=== PATIENT | male | born 1945 | race Caucasian/White ===

== ENCOUNTER 2022-08-18 08:19 | Outpatient (CLI) | payer OTHER, SELFPAY ==
--- NOTE | ~2022-08-18 | MR_ITS ---
EXAMINATION: MR knee RT wo con DATE: 08/18/2022 09:24 INDICATION: Right knee pain TECHNIQUE: Magnetic resonance imaging (MRI) of the right knee was performed without intravenous contr ast. Sequences included coronal PD-weighted FSE, coronal PD-weighted FS FSE, sagittal T2-weighted FS E, sagittal PD-weighted FS FSE and axial PD weighted fat saturated FSE. COMPARISON: Right knee CT dated 05/06/2022 FINDINGS: Medial compartment: Complex medial meniscal tear which includes a longitudinal horizontal tear plane of the body and post erior horn with a of the couple additional vertical tear planes in the posterior horn. There is exten sive deep chondral ulceration and fissuring with underlying subarticular edema at both the medial tib ial plateau and weightbearing medial femoral condyle. There is also a focal decreased signal to the s ubcortical bone along portions of the tibial plateau and anterior to central weightbearing medial fem oral condyle which suggests sclerotic eburnation which is not appreciated on the earlier CT suggestin g interval progression. Lateral compartment: Lateral meniscus is normal. Articular cartilage is normal. Patellofemoral compartment: Small region of deep chondral ulceration with minimal underlying subarticular edema-like signal tomlinson e at the superomedial aspect of the lateral patellar facet. There is more extensive partial thickness chondral fissuring without degenerative subchondral changes at the central aspect of the lateral fac et. Additional region of deep chondral ulceration without degenerative subchondral changes at the marcus tral aspect of the medial facet. Mild partial-thickness chondral ulceration at the lateral trochlea a nd with deeper fissuring at the inferior aspect of the trochlear groove and medial trochlea. Ligaments and tendons: Anterior and posterior cruciate ligaments are normal. The fibular collateral ligament is normal. Ther e is moderate tendinopathy of the proximal patellar tendon with likely degenerative cystic changes at its femoral insertion. There is mild thickening and mild increased signal without significant surrou nding edema at the proximal medial collateral ligament consistent with mild scarring related to chron ic sprain. Patellar tendon is normal. Mild distal quadriceps tendinopathy without tear. The visualize d medial and lateral hamstring tendons as well as the iliotibial band are normal. Fluid: Moderate-sized right knee joint effusion. Moderate to large Teresa's cyst measuring 7.6 x 3.4 x 2.3 cm . No loose osteochondral bodies identified. Osseous/other: Bone alignment is normal. Small low signal intensity bone island underlying the trochlear groove.. No fracture or pathologic marrow replacing process. IMPRESSION: 1. Complex medial meniscal tear with severe osteoarthritis and extensive moderate and high-grade dea dromalacia in the medial compartment which appears to progressed since prior CT. 2. Mild patellofemoral osteoarthritis with additional more focal regions of moderate and high-grade c hondromalacia. 3. Moderate proximal popliteal tendinopathy with associated degenerative cystic change at its femoral insertion. 4. Mild scarring likely related to chronic sprain of the proximal medial collateral ligament. 5. Likely reactive moderate sized right knee joint effusion and moderate to large Teresa's cyst. Reviewed, dictated and finalized at location A. IMPRESSION: 1. Complex medial meniscal tear with severe osteoarthritis and extensive modera te and high-grade chondromalacia in the medial compartment which appears to pro gressed since prior CT. 2. Mild patellofemoral osteoarthritis with additional more focal regions of mod erate and high-grade chondromalacia. 3. Moderate proximal popliteal tendinopathy with associated dege
== END 2022-08-18 08:20 | disposition home or self-care (01) ==
PROVIDERS: PCP Family Medicine; Visit Provider Orthopaedic Surgery
DX: S83.231A Complex tear of medial meniscus, current injury, right knee, initial encounter (principal); X58.XXXA Exposure to other specified factors, initial encounter; M17.11 Unilateral primary osteoarthritis, right knee
CPT/HCPCS: 73721

== ENCOUNTER 2022-09-15 07:41 | Outpatient (CLI) | payer OTHER, SELFPAY ==
--- NOTE | 2022-09-15 08:41 | ECG_ITS ---
Measurements Intervals [place] Rate: 70 P: -1 MD: 142 QRS: 0 QRSD: 137 T: 3 QT: 422 QTc: 457 Interpretive Statements SINUS RHYTHM RIGHT BUNDLE BRANCH BLOCK ABNORMAL ECG NO PREVIOUS ECG AVAILABLE FOR COMPARISON Electronically Signed On 09-15-2022 9:21:24 CDT by Chau Cummings D.O.
[2022-09-15 09:04] LABS: Basophils Percent Auto 0.7 % (0.2-1.2); Eosinophils Absolute Auto 0.1 K/mm3 (0-0.3); Eosinophils Percent Auto 1.8 % (0-4.4); Hematocrit 44.5 % (42.0-52.0); Hemoglobin 14.6 g/dL (14.0-18.0); Immature Granulocyte Absolute 0.02 K/mm3 (0.00-0.031); Immature Granulocyte Percent A 0.4 % (0-0.5); Lymphocytes Absolute Auto 1.66 K/mm3 (0.9-3.2); Lymphocytes Percent Auto 29.5 % (18.3-44.2); Mean Corpuscular HGB Conc 32.8 g/dl (32-36); Mean Corpuscular Volume 91.6 fl (80-100); Mean Platelet Volume 9.5 fl (7.4-10.4); Monocytes Absolute Auto 0.4 K/mm3 (0.1-0.6); Monocytes Percent Auto 6.8 % (2.6-8.5); Neutrophils Absolute Auto 3.4 K/mm3 (1.3-6.7); Neutrophils Percent Auto 60.8 % (45.5-73.1); Platelet Count Result 185 k/mm3 (150-375); Red Blood Count 4.86 M/mm3 (4.6-6.20); Red Cell Distribution Width 12.6 % (11.5-14.5); White Blood Count 5.6 K/mm3 (4.5-10.0)
[2022-09-15 09:15] LABS: Albumin Level 4.2 g/dL (3.5-5.1); Estimated Glomerular Filt Rate > 60; Glucose 106 mg/dL (65-110)
[2022-09-15 09:23] LABS: Urine Cotinine NEGATIVE
[2022-09-15 09:48] LABS: Hemoglobin A1C 5.5 % (<5.7)
== END 2022-09-15 07:42 | disposition home or self-care (01) ==
LOC: ANHSURGERY 07:46
PROVIDERS: PCP Family Medicine; Visit Provider Orthopaedic Surgery
DX: M17.11 Unilateral primary osteoarthritis, right knee (principal); Z01.818 Encounter for other preprocedural examination; I45.10 Unspecified right bundle-branch block
CPT/HCPCS: 80307; 82040; 82565; 82947; 83036; 85025; 87081; 93005

== ENCOUNTER 2022-10-05 03:01 | Day surgery (SDC) | payer OTHER, SELFPAY ==
[2022-09-15 07:47] VITALS: BP 154/84; PULSE 76; RESP 16; TEMP 36.8; O2SAT 97
[2022-09-15 07:54] VITALS: BMI 30.7
--- NOTE | 2022-09-15 08:04 | PC.NURSE ---
Report to the Outpatient Waiting Room, entrance under the green pavilion located off [facility], at time __7:30AM on date __10/05/22 . Planned Procedure Time: __9:30AM . Time changes happen often and if your time is changed the preop area will call you the afternoon before. - You and your visitor will be asked to self-screen and do not enter if you have any COVID symptoms. - A mask is optional within the hospital at this time. Patients may have clear liquids (water, carbonated beverages, clear teas, apple juice) until 3 hours prior to surgery with a maximum of 20 ounces. - No food from midnight until time of surgery Take the following medications with a SIP of water the morning of surgery: __NONE DO NOT STOP ANY OF YOUR OTHER PRESCRIPTION MEDICATIONS PRIOR TO SURGERY ?EXCEPT THE FOLLOWING Medications to discontinue per physician NONE Date to take last dose Please no make-up, nail japanese, hairspray, perfume, deodorant, or body powder the day of surgery. No jewelry (including any body piercings) or valuables the day of surgery, leave them at home. Please take a shower or bath the night before, or the morning of, surgery with an antibacterial soap. Wear comfortable, loose fitting clothing. Children are encouraged to wear pajamas. - Jewelry must be removed prior to entering the operating room. Rings and piercings that are not removed may be cut off. - The hospital will not accept responsibility for valuables. - Please leave all valuables, including medications, at home the day of surgery. If you are going home after surgery, a licensed regional company hazmat tanker driver must drive you home. - NO public transportation without another adult if you receive anesthesia. - We recommend that an adult stay with you for 24 hours following discharge. - We also recommend that you do not drive, make important decision, drink alcoholic beverages, or take any drugs that were not prescribed by your health care provider for at least 24 hours after your discharge time. For Pediatric surgeries, we recommend two adults accompany the child home. Follow any additional instructions given to you from your surgeon. If you or anyone in your household have experienced Covid symptoms in the past week, please notify your surgeon or the nurse liaison at the phone number below for possible testing. Telephone instructions given to __PATIENT and asked if any additional questions and then verbalized understanding. Patient advised to call surgeon office or pre surgery nurse liaison [phone] if any additional questions.
[2022-10-05] VITALS (12 sets, daily range): BP systolic 117–156; BP diastolic 60–85; PULSE 76–101; RESP 12–19; TEMP 36.1–36.9; O2SAT 92–100
--- NOTE | ~2022-10-05 | XR_ITS ---
EXAMINATION: [id number] DATE: 10/05/2022 10:01 INDICATION: Right knee arthroplasty. Postop. TECHNIQUE: 2 views of right knee were obtained. COMPARISON: Right knee radiographs 09/23/2022 FINDINGS: There is a medial compartment arthroplasty in near-anatomic alignment. There is mild osteoa rthritis of lateral and patellofemoral compartments characterized by tiny osteophytes. There is gas i n the soft tissues, consistent recent surgery. IMPRESSION: 1. Medial compartment arthroplasty in near-anatomic alignment. Reviewed, dictated and finalized at location A.
[2022-10-05] MEDS: TRANEXAMIC ACID 1,000MG/ISO100 1,000 MG/100 ML BAG 200 MG IVPB (07:00)
[2022-10-05] MEDS: ACETAMINOPHEN 500 MG TABLET 1000 MG PO (07:00)
[2022-10-05] MEDS: LACTATED RINGERS 1,000 ML 30 ML IV CONT ×2 (07:00→09:41)
--- NOTE | 2022-10-05 07:03 | P.PNAN_ITS ---
Anes - Initial Pre Proc Eval Procedure: Operation Date: 10/05/22 07:30 Proposed Procedures p Right Unicompartmental Knee Arthroplasty - Zaki Hung MD Date/Time: 10/05/22 07:03 Surgeon: Zaki Hung MD Pre Op Diagnosis: oa right knee Patient Data Age: 76 Gender: M Height: 1.8 m Weight: 99.7 kg Last Vital Signs Temp 36.8 C 09/15/22 07:47 Pulse 76 09/15/22 07:47 Resp 16 09/15/22 07:47 BP 154/84 H 09/15/22 07:47 Pulse Ox 97 09/15/22 07:47 O2 Del Method Room Air 09/15/22 07:47 Allergies Allergy/AdvReac Type Severity Reaction Status Date / Time No Known Allergies Allergy Verified 09/23/22 10:30 Home Medications Medication Instructions Recorded Confirmed Type losartan 25 mg tablet 25 mg PO QAM 07/01/22 09/23/22 History meloxicam 15 mg tablet 15 mg PO QAM 07/01/22 09/23/22 History simvastatin 40 mg tablet 40 mg PO HS 07/01/22 09/23/22 History rivaroxaban 10 mg tablet (Xarelto) 10 mg PO DAILY 14 days #14 tabs 09/23/22 09/23/22 Rx Patient hx anesthesia problems: none Family hx anesthesia problems: none Results Review: All pre-operative results and documents have been reviewed as part of the pre- operative evaluation. [facility] Past Medical History Medical History Arthritis of right knee Hypertension Surgical History Surgical History History of hernia repair History of knee replacement procedure of left knee 1999- Dr Lawson Social History Social History Smoking status: Never smoker Second hand tobacco smoke exposure: No Alcohol intake: current Substance use: never Substance use type: does not use Lack of Transportation: No Lack of Food: Never True Current Housing: I Have Housing Concerned About Future Housing: No Difficulty Paying Gas/Electric Bills: No Difficulty Paying for Meds: No Currently Unemployed: No Education: High School Diploma/GED Difficulty w/ Childcare or Family Care: No Living arrangements: with family Additional living arrangements comments: Occupation/Education: retired Spiritual care concerns: No Anes - Eval Final PreProcedure Day of Procedure 10/05/22 07:03 Patient weight: overweight Heart: regular rate and rhythm Lungs: clear to auscultation Airway: Mallampati scale class II Neurological: alert and oriented Last oral intake: >/= 8 hours ASA classification: III Emergent: no Anesthetic plan: proceed Anesthesia type and monitoring: general LMA and standard monitoring Results Review: All pre-operative results and documents have been reviewed as part of the pre- operative evaluation. Informed Consent: The patient's anesthetic plan and its attendant risks and benefits were discussed with the patient/family/POA. Questions were solicited and answers provided to the satisfaction of the patient/family/POA.
--- NOTE | 2022-10-05 07:18 | WPDHPUPDATE1 ---
History and Physical Update Update Date/Time: 10/05/22 07:18 History and Physical has been reviewed, including an updated exam of the patient. There are NO changes in the patient's condition. Risks, benefits, and alternatives have been discussed and questions answered. Patient agrees to proceed with procedure.
[2022-10-05] MEDS: ceFAZolin 2 GM/D5W 50 ML 2 GM/50 ML BAG IVPB ×2 (07:29→16:09)
--- NOTE | 2022-10-05 07:31 | WPDANESPNB ---
Anes - Peripheral Nerve Block Date/Time: 10/05/22 07:31 I have discussed with the patient/family/POA the placement of a peripheral nerve block for post-operative pain management, including associated risks, benefits, complications, and side effects. Alternative methods of post-operative analgesia were detailed. Questions were solicited and answers provided to the satisfaction of the patient/family/POA. Time-Out: A pre-procedural Time-Out was completed immediately before starting the procedure and confirmed: Patient Identification, Site, Procedure, Patient Position and the Availability of Requisite Equipment. Clinical Indications: Acute post-operative pain management requested by the operative surgeon. Nerve Block Insertion Note Anes-nerve block: adductor canal right Patient position: supine Skin prep: chlorhexidine Needle: 22 gauge, stimulating, insulated echogenic needle. Needle length: 80 mm Technique: ultrasound Injectate: bupivacaine 0.5% with epi 5 mcg/ml (30ml) Observations: tolerated well Complications: none Procedure start time:: 720 Procedure end time:: 727
[2022-10-05] MEDS: ceFAZolin SODIUM 1 GM VIAL IV PUSH (08:52)
--- NOTE | 2022-10-05 09:50 | P.OP_ITS ---
Procedure Note - Detailed Date of Procedure 10/05/22 Pre-op Diagnosis oa right knee Post-op Diagnosis Same Procedure Performed Right knee medial compartment replacement Surgeon Zaki Hung MD Supervisor [facility] Anesthesia General and Regional Description of Procedure The patient was identified and the proper site identified. In the preop holding area the anesthesia team performed a right lower extremity block. He was then taken to the operating room and transferred to the OR table placing him supine taking care to pad his torso and extremities. After general anesthetic induction and intubation. a nonsterile tourniquet was placed high on the right thigh. The extremity was positioned, prepped, and draped in the usual sterile fashion. The extremity was exsanguinated and the tourniquet was inflated to 300 mmHg remaining up for approximately 55 minutes. An anterior midline incision was made and sharp dissection carried down through the subcutaneous tissue to the extensor mechanism. A modified medial parapatellar arthrotomy was performed. The articular and meniscal cartilage of the lateral compartment was inspected and noted to be in excellent shape. Anterior and posterior cruciate ligaments were in continuity. There were extensive degenerative changes medial compartment and milder patellofemoral changes. The marginal osteophytes were removed from the notch and the medial aspect of the medial femoral condyle, and the remaining meniscal tissue was removed. The femur was sized to a large. With the appropriate spoon and tibial guide, a tibial resection was made. This was sized to C. Using the mill, the flexion and extension gaps were balanced. A trial reduction was undertaken. The range of motion of the knee was noted to be from full extension to 0-120? of flexion with excellent stability through range of motion. The polyethylene insert tracked nicely. The trial components were removed. The real large femur and size C tray for the right knee were cemented into place. The knee was held in about 30? of flexion while the cement cured. The tourniquet was released and excess cement was removed from the joint. Hemostasis was carried out. The knee was flushed with a copious amount of irrigation. After trialing, the appropri ate real size 3 insert for the femoral component was inserted and the stability again assessed. The knee was noted to be stable as it was taken through range of motion. The periarticular tissues were injected with 60 mL of arthroplasty solution after a 3 minutes Betadine bath wound. Surgicel powder was applied deep to and superficial to the extensor mechanism. The extensor mechanism was repaired with 0 looped PDS suture, the subcu with 3-0 Monocryl, 2-0 Stratafix and tissue adhesive for the skin. A sterile dressing was applied. The patient tolerated the procedure well, was awakened, extubated, and taken to recovery room in stable condition. Estimated Blood Loss 100 Tourniquet Time 55 Drains No Packing No Pathology None sent Complications No immediate complications Condition Stable Disposition PACU [facility] Billing Surgery - Charge Forward: Surgery Billing ([id number])
[2022-10-05] MEDS: fentaNYL CITRATE INJ (*CRX) 100 MCG/2 ML VIAL 25 MCG IV PUSH ×4 (09:56→10:30)
[2022-10-05] MEDS: oxyCODONE/ACETAMINOPHEN (*CRX) 5-325 MG TABLET 1 TABLET PO ×3 (12:51→21:28)
[2022-10-05] MEDS: SENNA/DOCUSATE SODIUM TABLET 2 TAB PO (17:58)
--- NOTE | 2022-10-05 19:39 | WPDCN ---
Assessment and Plan Assessment and plan (1) Arthritis of right knee: Code(s): M17.11 - Unilateral primary osteoarthritis, right knee Status: Chronic Assessment and Plan: Postoperative day 0 status post right total knee replacement. Wound care, pain control, and DVT prophylaxis deferred to Dr. Hung. Agree with PT/OT. Check hemoglobin hematocrit in a.m. (2) Hypertension: Code(s): I10 - Essential (primary) hypertension Status: Acute Assessment and Plan: Blood pressures were reviewed and they have been stable postoperatively. Resume losartan 25 mg and monitor closely. (3) Hyperlipidemia: Code(s): E78.5 - Hyperlipidemia, unspecified Status: Acute Assessment and Plan: Continue simvastatin 40 mg at bedtime. Check LFTs in a.m.. Plan Thank you for allowing us to participate in this patient's care. Please do not hesitate to contact us with any questions. HPI Data of Consult Date/Time: 10/05/22 22:00 Requesting Physician: Zaki Hung MD Consult Narrative Reason for consult: Postoperative medical management. Narrative: This is a 76 year male with osteoarthritis, hypertension, and hyperlipidemia whom the hospitalist service has been consulted for help managing his medical conditions postoperatively. He reports longstanding pain in his right knee which has not been amenable to conservative outpatient therapy and he elected for replacement. His surgery was performed under general and regional anesthesia with no immediate complications documented an estimated blood loss of 100 mL. Postoperatively he has done well and his pain is well controlled. He has been up to the chair and ambulating to the bathroom with a walker without issue. He denies postoperative fever, chills, sweats, chest pain, shortness a breath, nausea, and vomiting. He also denies paresthesias, skin color, and temperature changes distal to the surgical site. He is quite a healthy gentleman. He is on losartan 25 mg and simvastatin 40 mg daily for his hypertension hyperlipidemia and to his knowledge both are well controlled. He also has meloxicam which he takes for his arthritic pain. He denies history of venous thromboembolism. Review of Systems Review of Systems: Twelve systems were reviewed and are negative except for as per HPI. [facility] Past Medical History Medical History (Updated 10/05/22 @ 19:43 by Sarah Torres PA-C) Arthritis of right knee Hyperlipidemia Hypertension Surgical History Surgical History (Updated 10/05/22 @ 19:43 by Sarah Torres PA-C) History of cataract extraction with lens replacement History of hernia repair History of right inguinal hernia repair History of total left knee replacement (1999) Per Dr. Lawson. History of total right knee replacement (10/05/22) Per Dr. Hung. History of umbilical hernia repair History of vasectomy Family History Family History (Updated 10/05/22 @ 19:43 by Sarah Torres PA-C) Other Family history non-contributory Social History Social History (Updated 10/05/22 @ 19:44 by Sarah Torres PA-C) Social History: Surrogate medical decision maker: Eun Montoya, spouse. Code status: Full code. Smoking status: Never smoker Second hand tobacco smoke exposure: No Alcohol intake: current Alcohol use details: Social alcohol use in moderation. Substance use: never Substance use type: does not use Lack of Transportation: No Lack of Food: Never True Current Housing: I Have Housing Concerned About Future Housing: No Difficulty Paying Gas/Electric Bills: No Difficulty Paying for Meds: No Currently Unemployed: No Education: High School Diploma/GED Difficulty w/ Childcare or Family Care: No Living arrangements: with family Additional living arrangements comments: Lives with spouse in [place]. Occupation/Education: retired Spiritual care concerns: No Meds Home M
[2022-10-05] MEDS: SIMVASTATIN 20 MG TABLET 40 MG PO (21:28)
[2022-10-06] MEDS: ceFAZolin 2 GM/D5W 50 ML 2 GM/50 ML BAG IVPB ×2 (00:19→05:51)
[2022-10-06] MEDS: oxyCODONE/ACETAMINOPHEN (*CRX) 5-325 MG TABLET 1 TABLET PO ×3 (00:20→09:04)
[2022-10-06 00:29] VITALS: BP 132/74; PULSE 83; RESP 18; TEMP 36.6; O2SAT 97
[2022-10-06 04:23] VITALS: BP 121/57; PULSE 72; RESP 17; TEMP 36.8; O2SAT 94
[2022-10-06 05:18] LABS: Hematocrit 38.9 % (42.0-52.0); Hemoglobin 12.8 g/dL (14.0-18.0); Mean Corpuscular HGB Conc 32.9 g/dl (32-36); Mean Corpuscular Volume 91.1 fl (80-100); Mean Platelet Volume 9.8 fl (7.4-10.4); Platelet Count Result 172 k/mm3 (150-375); Red Blood Count 4.27 M/mm3 (4.6-6.20); Red Cell Distribution Width 12.4 % (11.5-14.5); White Blood Count 10.4 K/mm3 (4.5-10.0)
[2022-10-06 05:29] LABS: Alanine Aminotransferase 15 U/L (6-50); Albumin Level 3.6 g/dL (3.5-5.1); Alkaline Phosphatase 42 U/L (38-126); Anion Gap 5 mmol/L (8-16); Aspartate Amino Transferase 21 U/L (17-59); Bilirubin,Total 0.5 mg/dL (0.2-1.3); Blood Urea Nitrogen 17 mg/dL (9-20); Calcium 8.6 mg/dL (8.4-10.2); Carbon Dioxide 24 mmol/L (22-30); Chloride 105 mmol/L (98-107); Estimated CRCL calculation 82 ml/min; Estimated Glomerular Filt Rate > 60; Glucose 141 mg/dL (65-110); Magnesium 2.2 mg/dL (1.6-2.3); Potassium 4.1 mmol/L (3.4-5.0); Sodium 134 mmol/L (137-145)
--- NOTE | 2022-10-06 07:42 | PM.DS ---
DS: Admitting Diagnosis Discharge Date 10/06/2022 Admitting Diagnosis Primary osteoarthritis right knee DS: Discharge Diagnosis Discharge Diagnosis (1) Status post right unicompartmental knee replacement: Code(s): Z96.651 - Presence of right artificial knee joint Status: Acute Plan 76-year-old male postop day 1 after right unicompartmental knee arthroplasty with Dr. Hung. Overall doing very well and was able to participate with therapy yesterday. Incision site is clean and dry. He will remain 50% weight-bearing for a total of 6 weeks following the procedure. Postoperative wound care and medications were reviewed with him in detail. He will take Xarelto for 2 weeks and then start on 325 mg aspirin for another 4 weeks for a total of 6 weeks of DVT prophylaxis. He will hold the meloxicam until further notice. He has follow-up scheduled in 2 weeks for wound check. DS: Summary Hospital Course Reason for hospitalization: Observation after outpatient procedure Hospital Course: 76-year-old male admitted for observation after right unicompartmental knee arthroplasty. Uneventful overnight stay. Incision site is clean and dry. Hospitalist service was consulted due to hypertension and hyperlipidemia. Plan on receiving therapy again today prior to discharge later this afternoon Status at Discharge Functional status at discharge: uses cane/walker Overall status at discharge: patient is progressing back to baseline Time Spent with Patient Time attestation: Total time spent providing and/or coordinating discharge services: Time spent: Less than 30 minutes Exam Const: General: cooperative, comfortable and no acute distress; No confusion Orientation/consciousness: No confusion HENMT: Head: normal to inspection Ears: hearing grossly normal bilaterally Mouth: Yes moist mucous membranes Eyes: General: appearance normal, both eyes and all related structures Resp: Effort & Inspection: normal respiratory effort and able to speak in complete sentences GI: Inspection: normal to inspection and non-distended Skin: General skin exam: normal color, no ecchymosis and no erythema Neuro: General: No confusion Cranial nerves: Yes Normal hearing present Speech: normal speech Sensory Exam: normal sensation Extrem: Other: Exam of the right lower extremity shows a clean and dry surgical dressing. Mild effusion of the right knee with slight right lower extremity edema, consistent with right knee unicompartmental arthroplasty. He is able to wiggle his toes without difficulty, pulses are strong. Calves negative. Neurovascular status right lower extremity is intact. Psych: Mental Status: mental status grossly normal DS: Data Data Completed and Pending Labs on day of discharge: Labs from last 24 hours 10/06/22 10/05/22 04:45 06:51 WBC 10.4 H RBC 4.27 L Hgb 12.8 L Hct 38.9 L MCV 91.1 MCH 30.0 MCHC 32.9 RDW 12.4 Plt Count 172 MPV 9.8 Sodium 134 L Potassium 4.1 Chloride 105 Carbon Dioxide 24 Anion Gap 5 L BUN 17 Creatinine 0.70 Estim Creat Clear Calc 82 Estimated GFR > 60 Glucose 141 H Calcium 8.6 Magnesium 2.2 Total Bilirubin 0.5 AST 21 ALT 15 Alkaline Phosphatase 42 Total Protein 6.0 L Albumin 3.6 Antibody Screen Negative Discharge Plan Discharge Patient Disposition: Home, Self-Care Discharge Instructions: 3 times daily for 20 minutes each time, reclining in bed with ice packs over the incision and a pillow underneath the calf of the affected leg, not under the knee. Your wound is glued so it is okay to remove the dressing, get into the shower and get the wound wet in two days. Be sure to read through all the information that came from a my office and the hospital. Most of the answers you will need can be found that material. You will be using your walker for a total of six weeks putting 50% weight on your right leg. Call the offic
[2022-10-06] MEDS: polyethylene glycoL 3350 17 GM POWD.PACK PO (09:04)
[2022-10-06] MEDS: RIVAROXABAN 10 MG TABLET PO (09:04)
[2022-10-06] MEDS: SENNA/DOCUSATE SODIUM TABLET 2 TAB PO (09:04)
[2022-10-06] MEDS: LOSARTAN POTASSIUM 25 MG TABLET PO (09:04)
--- NOTE | 2022-10-06 10:01 | PM.IMPN ---
Progress Note: A&P Assessment and Plan (1) Arthritis of right knee: Code(s): M17.11 - Unilateral primary osteoarthritis, right knee Status: Resolved Assessment and Plan: Postoperative day 1 status post right total knee replacement 10/05 Wound care, pain control, and DVT prophylaxis deferred to Dr. Hung. Agree with PT/OT. Monitor hgb (2) Hypertension: Code(s): I10 - Essential (primary) hypertension Status: Acute Assessment and Plan: Blood pressures were reviewed 10/06 Cont losartan 25 mg and monitor closely. (3) Hyperlipidemia: Code(s): E78.5 - Hyperlipidemia, unspecified Status: Acute Assessment and Plan: Continue simvastatin 40 mg at bedtime LFTs wnl Plan DVT prophylaxis with SCDs GI prophylaxis not indicated Code status full code Subjective Date/time seen: 10/06/22 10:01 Interval history: No overnight events noted. No chest pain or shortness of breath. No nausea, vomiting or diarrhea. No fevers or chills. Review of Systems Review of Systems: 12 point review of systems was assessed and was negative except as noted in the HPI Exam Narrative: General: No acute distress, alert and oriented per baseline HEENT: Atraumatic, normocephalic, mucous membranes moist CV: Regular rate and rhythm, S1, S2 Lungs: Clear to auscultation bilaterally, no rales or crackles noted, no wheezes, good air entry Abdomen: Soft, nontender, nondistended Extremities: Normal to inspection Skin: No rashes noted, no lesions or wounds seen Psych: Euthymic, normal affect Objective Data Vital Signs Vital Signs: Vital Signs - 24 hr 10/05/22 10:04 10/05/22 10:10 10/05/22 10:25 Temperature Pulse Rate 87 83 Respiratory Rate 16 16 Blood Pressure 140/76 148/67 H Pulse Oximetry 92 95 Oxygen Delivery Room Air Room Air Room Air 10/05/22 10:40 10/05/22 11:00 10/05/22 11:15 Temperature 97.6 F 97.6 F Pulse Rate 87 81 82 Respiratory Rate 18 18 18 Blood Pressure 117/80 135/69 140/74 Pulse Oximetry 95 95 96 Oxygen Delivery Room Air 10/05/22 11:45 10/05/22 13:07 10/05/22 12:45 Temperature 97.6 F 98.1 F Pulse Rate 76 87 Respiratory Rate 18 18 Blood Pressure 132/71 153/60 H Pulse Oximetry 98 97 Oxygen Delivery Room Air 10/05/22 16:59 10/05/22 20:29 10/05/22 20:00 Temperature 97.6 F 98.2 F Pulse Rate 93 95 Respiratory Rate 18 17 Blood Pressure 148/72 H 135/71 Pulse Oximetry 97 93 Oxygen Delivery Room Air 10/06/22 00:29 10/06/22 04:23 Temperature 97.8 F 98.2 F Pulse Rate 83 72 Respiratory Rate 18 17 Blood Pressure 132/74 121/57 L Pulse Oximetry 97 94 Oxygen Delivery Intake/Output Intake/Output: Intake & Output 10/03/22 10/04/22 10/05/22 10/06/22 23:59 23:59 23:59 23:59 Intake Total 1210 590 Output Total 500 Balance 1210 90 Meds/Results Medications: Active Medications Generic Name Dose Route Start Last Admin Trade Name Freq PRN Reason Stop Dose Admin Losartan Potassium 25 mg 10/06/22 09:00 10/06/22 09:04 Losartan Potassium 25 Mg Tablet PO 25 mg QAM MARGIE Administration Naloxone HCl 0.1 mg 10/05/22 10:44 Naloxone Hcl 0.4 Mg/Ml Vial IV PUSH Q2M PRN Opiate Reversal Ondansetron HCl 4 mg 10/05/22 10:44 Ondansetron Inj 4 Mg/2 Ml Vial IV PUSH Q4H PRN Nausea And Vomiting Oxycodone HCl 5 mg 10/05/22 10:44 Oxycodone Hcl (*Crx) 5 Mg Tab Ir PO Q4HR PRN Pain 7-10 Oxycodone/Acetaminophen 1 tablet 10/05/22 13:00 10/06/22 09:04 Oxycodone/Acetaminophen (*Crx) 5-325 Mg Tablet PO 10/07/22 12:59 1 tablet Q4HR MARGIE Administration Polyethylene Glycol 17 gm 10/06/22 09:00 10/06/22 09:04 Polyethylene Glycol 3350 17 Gm Powd.Pack PO 17 gm QAM MARGIE Administration Rivaroxaban 10 mg 10/06/22 09:00 10/06/22 09:04 Rivaroxaban 10 Mg Tablet PO 10 mg DAILY MARGIE Administration Senna/Docusate Sodium 2 tab
--- NOTE | 2022-10-06 11:55 | PC.NURSE ---
10/06/[address] Carrasco to verify that patient is ok to discharge. stated that he's ok to discharge.
== END 2022-10-06 11:24 | disposition home or self-care (01) ==
LOC: ANHSURGERY 09:46 → ANH2MED 10:47
PROVIDERS: Physician Assistant; PCP Family Medicine; Visit Provider Orthopaedic Surgery
PROC: (CPT 27446; principal; 2022-10-05 07:30)
DX: M17.11 Unilateral primary osteoarthritis, right knee (principal); G89.18 Other acute postprocedural pain; I10 Essential (primary) hypertension; E78.5 Hyperlipidemia, unspecified
CPT/HCPCS: 64447; 27446; 36415; 73560; 80053; 80307; 82040; 82565; 82947; 83036; 83735; 85025; 85027; 86850; 86900; 86901; 87081; 93005; 97110; 97116; 97161; 97165; 97530; 97535; A9270; C1713; C1776; J0171; J0690; J1100; J2250; J2270; J2405; J2704; J2795; J3010; J7120

== ENCOUNTER 2022-12-02 11:03 | Outpatient (CLI) | payer OTHER, SELFPAY ==
--- NOTE | ~2022-12-02 | US_ITS ---
EXAMINATION:US venous doppler LE RT INDICATION:Right leg pain TECHNIQUE: Multiple grayscale, color flow and Doppler images of the right lower extremity deep venous systems were obtained and reviewed. COMPARISON:No prior studies for comparison. FINDINGS: The common femoral, superficial femoral and popliteal veins demonstrate normal respiratory variation, augmentation and compressibility. Color flow is also seen within the posterior tibial, pe roneal, greater saphenous and profunda veins. IMPRESSION: 1: No lower extremity deep venous thrombosis. Reviewed, dictated and finalized at location B.
== END 2022-12-02 11:04 | disposition home or self-care (01) ==
PROVIDERS: PCP Family Medicine; Visit Provider Orthopaedic Surgery
DX: M79.604 Pain in right leg (principal)
CPT/HCPCS: 93971